=== PATIENT | female | born 1980 ===

== ENCOUNTER 2017-10-27 23:56 | Emergency (ER) | payer OTHER ==
[2017-10-28] VITALS: TEMP 98.7
[2017-10-28 00:02] VITALS: RESP 18
[2017-10-28] MEDS ORDERED: DiphenhydrAMINE 50 mg/ml Inj IV STA (00:44)
--- NOTE | 2017-10-28 00:47 | ED PDOC ---
HPI: Skin/Bite Injury Time Seen by Provider: 10/28/17 00:18 Chief Complaint (Nursing): Allergic Reaction Chief Complaint (Provider): rash History Per: Patient History/Exam Limitations: no limitations Onset/Duration Of Symptoms: Days (2) Current Symptoms Are (Timing): Still Present Quality Of Symptoms: Itching Additional Complaint(s): 37 y/o female presents for evaluation of diffuse pruritic rash x 2 days. Patient states rash started a few hours after finishing a course of antibiotics for a urinary tract infection, but does not remember the name. Denies facial swelling, difficulty speaking/swallowing, cough, chest pain, shortness of breath , palpitations, abdominal pain. Took Zyrtec with little relief. Past Medical History Reviewed: Historical Data, Nursing Documentation, Vital Signs Vital Signs: Last Vital Signs Temp 98.7 F 10/27/17 23:58 Pulse 78 10/27/17 23:59 Resp 18 10/27/17 23:59 BP 111/67 10/27/17 23:58 Pulse Ox 99 10/28/17 02:20 - Medical History PMH: No Chronic Diseases - Surgical History Surgical History: No Surg Hx - Family History Family History: States: No Known Family Hx - Home Medications Home Medications: Ambulatory Orders Medication Instructions Recorded Famotidine [Pepcid] 20 mg PO BID #8 tab 10/28/17 predniSONE [Prednisone] 60 mg PO DAILY #12 tab 10/28/17 - Allergies Allergies/Adverse Reactions: Allergies Allergy/AdvReac Type Severity Reaction Status Date / Time No Known Allergies Allergy Verified 10/27/17 23:58 Review of Systems ROS Statement: Except As Marked, All Systems Reviewed And Found Negative Skin: Positive for: Rash Physical Exam - Reviewed Nursing Documentation Reviewed: Yes Vital Signs Reviewed: Yes - Physical Exam Appears: Positive for: Well, Non-toxic, No Acute Distress Head Exam: Positive for: ATRAUMATIC, NORMAL INSPECTION, NORMOCEPHALIC Skin: Positive for: Rash (diffuse hives) Eye Exam: Positive for: Normal appearance ENT: Positive for: Normal ENT Inspection Cardiovascular/Chest: Positive for: Regular Rate, Rhythm Respiratory: Positive for: Normal Breath Sounds Gastrointestinal/Abdominal: Positive for: Normal Exam Back: Positive for: Normal Inspection Extremity: Positive for: Normal ROM Neurologic/Psych: Positive for: Alert, Oriented - ECG O2 Sat by Pulse Oximetry: 99 - Progress ED Course And Treament: IV benadryl, IV pepcid, IV solumedrol 2:15 Patient states she is feeling better; rash improved Patient educated on findings, discharged with rx Prednisone, Pepcid Advised to continue Zyrtec Find out name of antibiotic and avoid in future Follow up PMD 2-3 days. Return precautions given Disposition - Clinical Impression Clinical Impression: Urticaria Counseled Patient/Family Regarding: Diagnosis, Need For Followup, Rx Given - Disposition [facility]errals: [facility] [Outside] Disposition: Routine/Home Disposition Time: 02:20 Condition: IMPROVED Prescriptions: Famotidine [Pepcid] 20 mg PO BID #8 tab predniSONE [Prednisone] 60 mg PO DAILY #12 tab Instructions: Hives Forms: [facility] (Lao)
[2017-10-28] MEDS ORDERED: DiphenhydrAMINE 50 mg/ml Inj ONE (01:09)
[2017-10-28 02:44] VITALS: BP 107/70; PULSE 70; O2SAT 100
== END 2017-10-28 02:47 | disposition home or self-care (01) ==
LOC: H.ER 23:56
DX: L50.0 Allergic urticaria (principal); T78.40XA Allergy, unspecified, initial encounter
CPT/HCPCS: 81025; 96374; 96375; 99283; J1200; J2930

== ENCOUNTER 2017-10-29 07:25 | Emergency (ER) | payer OTHER ==
[2017-10-29 07:27] VITALS: BMI 21.6
[2017-10-29] MEDS ORDERED: DiphenhydrAMINE 50 mg/ml Inj IM STA (07:47)
[2017-10-29] MEDS ORDERED: DiphenhydrAMINE 50 mg/ml Inj IVP STA (07:50)
--- NOTE | 2017-10-29 07:51 | ED PDOC ---
HPI: Skin/Bite Injury Time Seen by Provider: 10/29/17 07:30 History Per: Patient History/Exam Limitations: no limitations Onset/Duration Of Symptoms: Days Current Symptoms Are (Timing): Still Present Quality Of Symptoms: Itching, Swollen Severity: Moderate Additional Complaint(s): CC: allergy HPI: 37 YO Female with no sig PMHx presents to [facility] ED for allergic reaction. Pt states that she was taking 7 days of Macrobid prior to the start of her symptoms. Per pt, she finished her last dose of her Macrobid on Wednesday, her symptoms started Wednesday morning. Symptoms including rash all over the body, itching that progressed throughout the day and in the evening pt had some chest discomfort. Pt was assessed in the ED, given meds and after feeling better was d /c home with PO steroid. This morning when she woke up, her rash and itching became a source of discomfort for patient, did not improve with PO meds. Did not take her prednisone yet this morning. Denies chest pain, palpitations, dyspnea, headache, dizziness, n/v/d/c chills and fevers. PMD: none, uses urgent care center as PMD PMHx: denies SurgHx: denies SH: denies ETOH, smoking and illicit drug use FH: unknown, pt adopted Allergies: macrobid--rash, sob Meds: famotidine and prednisone Past Medical History Vital Signs: Last Vital Signs Temp 98.1 F 10/29/17 12:37 Pulse 75 10/29/17 12:37 Resp 16 10/29/17 12:37 BP 125/80 10/29/17 12:37 Pulse Ox 100 10/29/17 12:37 - Medical History PMH: No Chronic Diseases - Surgical History Surgical History: No Surg Hx - Family History Family History: States: Unknown Family Hx - Living Arrangements Living Arrangements: With Family - Social History Current smoker - smoking cessation education provided: No Alcohol: None Drugs: Denies - Home Medications Home Medications: Ambulatory Orders Medication Instructions Recorded Famotidine [Pepcid] 20 mg PO BID #8 tab 10/28/17 predniSONE [Prednisone] 60 mg PO DAILY #12 tab 10/28/17 - Allergies Allergies/Adverse Reactions: Allergies Allergy/AdvReac Type Severity Reaction Status Date / Time Macrobid Allergy RASH Uncoded 10/29/17 07:37 Review of Systems Constitutional: Negative for: Fever, Chills Cardiovascular: Negative for: Chest Pain, Palpitations Respiratory: Negative for: Cough, Shortness of Breath Gastrointestinal: Negative for: Nausea, Vomiting, Abdominal Pain Genitourinary Female: Negative for: Dysuria, Frequency Skin: Positive for: Rash Neurological: Negative for: Weakness, Numbness Physical Exam - Physical Exam Appears: Positive for: No Acute Distress Skin: Positive for: Rash (uticaria b/l arms, throughout the abdomen, low back and knees and thigh b/l). Negative for: Pallor, Cyanosis Neck: Positive for: Painless ROM Cardiovascular/Chest: Positive for: Regular Rate, Rhythm. Negative for: Murmur Respiratory: Positive for: Normal Breath Sounds. Negative for: Accessory Muscle Use, Wheezing Gastrointestinal/Abdominal: Positive for: Normal Exam, Bowel Sounds, Soft. Negative for: Tenderness Back: Positive for: Normal Inspection Extremity: Positive for: Normal ROM. Negative for: Pedal Edema Neurologic/Psych: Positive for: Alert - Laboratory Results Result Diagrams: 10/29/17 07:55 10/29/17 07:55 - ECG O2 Sat by Pulse Oximetry: 98 - Progress ED Course And Treament: 37 YO female with delayed allergic reaction. VS stable, O2 98% in RA, breathing comfortably. -benadryl IV -Solumdrol -pepsid -IVF -cbc, bmp Pt seen and reassesed Blood work appreciated sig for elevated WBC, likely 2/2 to steriod use. Afebrile Hives resolved at this time. Pt stable and feeling better Pt to follow up in [facility] Return to ER if dyspnea, or worsening symptoms Pt agrees with plan Disposition - Clinical Impression Clinical Impression: Allergic reaction - Disposition Disposition Time: 11:15 Condition: STABLE Additional Instructions: Continue prednisone, return to ER for any worse symptoms or difficulty breathing , take benadryl 25mg every 6hrs today as needed. Instructions: Drug Allergy Forms: [employer] (Kiswahili)
[2017-10-29] MEDS ORDERED: Sodium Chloride 0.9% 1,000 ML IV SCH (08:00)
[2017-10-29 08:20] LABS: BASO % 0.1 % (0.0-2.0); HEMOGLOBIN 12.8 g/dL (12.0-16.0); LYMPH # 1.7 K/uL (1.0-4.3); LYMPH % 9.1 % (20.0-40.0); MEAN CELL VOLUME 92.4 fl (81.0-99.0); MEAN CORPUSCULAR HEMOGLOBIN 31.7 pg (27.0-31.0); MEAN CORPUSCULAR HGB CONC 34.3 g/dL (33.0-37.0); MEAN PLATELET VOLUME 8.5 fl (7.2-11.7); MONO # 0.5 K/uL (0.0-0.8); MONO % 2.8 % (0.0-10.0); NEUT # 16.2 K/uL (1.8-7.0); PLATELET COUNT 258 K/uL (130-400); RBC 4.04 Mil/uL (3.80-5.20); RED CELL DISTRIBUTION WIDTH 12.6 % (11.5-14.5); WHITE BLOOD COUNT 18.4 K/uL (4.8-10.8)
[2017-10-29 08:45] LABS: BLOOD UREA NITROGEN 12 mg/dl (7-17); CALCIUM 9.2 mg/dL (8.4-10.2); GFR AFRICAN-AMERICAN > 60; GFR NON-AFRICAN AMERICAN > 60
[2017-10-29 09:28] LABS: ANISOCYTOSIS SLIGHT; LARGE PLATELETS PRESENT; LYMPHOCYTE 8 % (20-50); MONOCYTE 1 % (0-10); NEUTROPHIL 91 % (42-75); PLATELET ESTIMATE NORMAL (NORMAL); TEARDROP CELLS SLIGHT; TOTAL CELLS COUNTED 100
[2017-10-29 12:37] VITALS: BP 125/80; PULSE 75; RESP 16; TEMP 98.1
[2017-10-29 12:57] VITALS: O2SAT 98
== END 2017-10-29 12:37 | disposition home or self-care (01) ==
LOC: H.ER 07:25
DX: T78.49XA Other allergy, initial encounter (principal); X58.XXXA Exposure to other specified factors, initial encounter
CPT/HCPCS: 80048; 85025; 96374; 96375; 99285; J1200; J2930; J7030

== ENCOUNTER 2018-07-20 09:55 | Emergency (ER) | payer OTHER ==
[2018-07-20 10:06] VITALS: RESP 16; O2SAT 100
[2018-07-20 10:07] VITALS: BMI 24.1
--- NOTE | 2018-07-20 11:48 | ED PDOC ---
HPI: Allergic Reaction Time Seen by Provider: 07/20/18 11:30 Chief Complaint (Nursing): Allergic Reaction Chief Complaint (Provider): Allergic Reaction History Per: Patient History/Exam Limitations: no limitations Onset/Duration Of Symptoms: Days Current Symptoms Are (Timing): Still Present Possible Cause: Medication (MACROBID, PT HAD SIMILAR REACTION IN OCTOBER AFTER TAKI NG MED) Associated Symptoms: Skin Rash, Itching, Redness. denies: Swelling, Dyspnea, Trouble Swallowing, Dizziness, Chest Pain Home/EMS Treatment: Other (HYDROXZINE AND ZYRTEC ) Severity: Moderate Additional Complaint(s): 37 year old female with no past medical history who is presenting to the ED for evaluation of 1 day of rash to knuckles, LEFT inner knee and back. Patient states that she was taking Macrobid, starting about 10 days ago for a UTI. She reports that her PMD gave them to her and she completed the course 2 days ago after which the rash began. Patient verbalized that her urinary symptoms have subsided and admits that she was seen here in October for similar symptoms after taking Macrobid but was told by her doctor that it was not due to the medications. Patient states that she has been taking Zyrtec and hydroxyzine which she was given during her previous visit.Additionally patient reports urinary symptoms have subsided. She denies any shortness of breath, chest pain, nausea, vomiting, throat swelling, or difficulty swallowing own secretions. PMD: none provided Past Medical History Reviewed: Historical Data, Nursing Documentation, Vital Signs Vital Signs: Last Vital Signs Temp 98 F 07/20/18 10:04 Pulse 70 07/20/18 10:04 Resp 16 07/20/18 10:04 BP 111/70 07/20/18 10:04 Pulse Ox 100 07/20/18 10:04 - Medical History PMH: No Chronic Diseases - Surgical History Surgical History: No Surg Hx - Family History Family History: States: Unknown Family Hx - Social History Current smoker - smoking cessation education provided: No Alcohol: Social Drugs: Denies - Home Medications Home Medications: Ambulatory Orders Medication Instructions Recorded Famotidine [Pepcid] 20 mg PO BID #8 tab 10/28/17 predniSONE [Prednisone] 60 mg PO DAILY #12 tab 10/28/17 Diphenhydramine HCl [Benadryl 25 mg PO Q6H PRN #16 tablet 07/20/18 Allergy] Famotidine [Pepcid] 20 mg PO BID #8 tab 07/20/18 Prednisone [Deltasone] 60 mg PO DAILY #12 tablet 07/20/18 - Allergies Allergies/Adverse Reactions: Allergies Allergy/AdvReac Type Severity Reaction Status Date / Time Macrobid Allergy RASH Uncoded 10/29/17 07:37 Review of Systems ROS Statement: Except As Marked, All Systems Reviewed And Found Negative Constitutional: Negative for: Fever, Chills, Sweats, Weakness, Malaise, Weight loss Eyes: Negative for: Pain, Vision Change, Conjunctivae Inflammation, Eyelid Infl ammation, Redness ENT: Negative for: Mouth Swelling, Throat Swelling Cardiovascular: Negative for: Chest Pain, Palpitations, Edema Respiratory: Negative for: Cough, Shortness of Breath, SOB with Exertion, Wheezing Gastrointestinal: Negative for: Nausea, Vomiting, Abdominal Pain Genitourinary Female: Negative for: Dysuria Skin: Positive for: Rash Neurological: Negative for: Weakness, Dizziness Physical Exam - Reviewed Nursing Documentation Reviewed: Yes Vital Signs Reviewed: Yes - Physical Exam Appears: Positive for: Non-toxic, No Acute Distress Head Exam: Positive for: ATRAUMATIC, NORMAL INSPECTION, NORMOCEPHALIC Skin: Positive for: Warm, Rash (hives and erythematous rash to knuckles of bilateral hands and left inner thigh picture of rash to back shown, redness on back has improved ) Eye Exam: Positive for: EOMI, Normal appearance, PERRL ENT: Positive for: Normal ENT Inspection, Pharynx Is (clear). Negative for: Tonsillar Swelling Neck: Positive for: Normal, Painless ROM Cardiovascular/Chest: Positive for: Regular Rate, Rhythm. Negative for: Murmur Respiratory: Positive for: Normal Breath Sounds, Other (speaking in full sentences ). Negative for: Respiratory Distress Gastrointestinal/Abdominal: Positive for: Normal Exam, Soft. Negative for: Tenderness Extremity: Positive for: Normal ROM. Negative for: Deformity, Swelling Neurological/Psych: Positive for: Awake, Alert, Normal Tone, Oriented. Negative for: Motor/Sensory Deficits - Laboratory Results Urine POC: Negative - ECG O2 Sat by Pulse Oximetry: 100 (RA) Pulse Ox Interpretation: Normal Disposition - Clinical Impression Clinical Impression: Allergic reaction, Allergic reaction caused by a drug - Patient ED Disposition Is Patient to be Admitted: No Counseled Patient/Family Regarding: Diagnosis - Disposition Disposition: Routine/Home Disposition Time: 11:25 Condition: STABLE Prescriptions: Diphenhydramine HCl [Benadryl Allergy] 25 mg PO Q6H PRN #16 tablet PRN Reason: Allergy Symptoms Famotidine [Pepcid] 20 mg PO BID #8 tab Prednisone [Deltasone] 60 mg PO DAILY #12 tablet Instructions: Drug Allergy Print Language: MOSOTHO - POA Present On Arrival: None Medical Decision Making Medical Decision Making: Time: 11:45 Impression: allergic reaction due to drugs Plan: --ED Urine --Pepcid 20 mg PO --Prednisone 60 mg PO Instructed patient to refrain from taking Macrobid and to continue taking Zyrtec and hydroxyzine. Prescription for Pepcid for 4 days and prednisone 60mg another 4 days given, benadryl 25mg PO as needed. Pt advised to tke benadryl if she will be home as it may cause drowsiness. Pt advised she may continue to take Zyrtec. Patient is stable for discharge, she agrees to plan and return precautions given. Scribe Attestation: Documented by Isadora Wright, acting as a scribe for [facility] [employer]IVER. Provider Scribe Attestation: All medical record entries made by the Scribe were at my direction and personally dictated by me. I have reviewed the chart and agree that the record accurately reflects my personal performance of the history, physical exam, medical decision making, and the department course for this patient. I have also personally directed, reviewed, and agree with the discharge instructions and disposition.
[2018-07-20 12:08] VITALS: BP 110/72; PULSE 71; TEMP 98
== END 2018-07-20 12:08 | disposition home or self-care (01) ==
LOC: H.ER 09:55
DX: Z88.1 Allergy status to other antibiotic agents (principal)